=== PATIENT | female | born 1985 | race Caucasian/White ===

== ENCOUNTER 2022-04-24 09:04 | Outpatient (CLI) | payer OTHER, SELFPAY ==
--- NOTE | 2022-04-24 09:15 | CRLHL7_ITS ---
For Patients: As a result of the Century Cures Act, medical imaging exams and procedure reports are released immediately into your electronic medical record. You may view this report before your referring provider. If you have questions, please contact your health care provider. CLINICAL HISTORY: IUD string not visualized TECHNIQUE: Real time, torres scale images were acquired of the pelvis using a transabdominal and transvaginal approach. Color Doppler analysis was performed of the ovaries. FINDINGS: Uterus measures 10.1 x 4 x 5.1 centimeters. IUD within the endometrial cavity within a satisfactory position. Endometrium measures 5 millimeters. Right ovary measures 2.9 x 1.5 x 2.3 centimeters left ovary measures 4.1 x 1.5 x 2.7 centimeters. Both ovaries appear unremarkable normal blood flow to both ovaries. Hypoechoic rounded area in the cervix measuring approximately 3.9 x 2.3 x 2.4 centimeters may represent a fibroid. IMPRESSION: 1. IUD within the endometrium within in satisfactory position. 2. 3.9 x 2.3 x 2.4 centimeter rounded hypoechoic area in the cervix may represent a fibroid. Dictated by Alisa Grimes MD @ 04/24/2022 10:27:12 AM (Electronically Signed)
== END 2022-04-24 09:05 | disposition home or self-care (01) ==
LOC: US 09:04
PROVIDERS: PCP Family Medicine; Visit Provider Physician Assistant
DX: N92.1 Excessive and frequent menstruation with irregular cycle (principal); Z30.431 Encounter for routine checking of intrauterine contraceptive device
CPT/HCPCS: 76830; 76856

== ENCOUNTER 2022-05-12 07:44 | Day surgery (SDC) | payer OTHER, SELFPAY ==
[2022-05-12 08:00] VITALS: BP 113/90; PULSE 92; RESP 16; TEMP 36.9; O2SAT 99
[2022-05-12] MEDS: LACTATED RINGERS 1000 ML 1,000 ML 100 ML IV (08:00)
[2022-05-12 08:04] VITALS: BMI 21.7
[2022-05-12 08:29] LABS: Ur HCG Qualitative* Negative (Negative)
[2022-05-12] MEDS: LIDOCAINE 1% MDV 10 ML INJECTION (09:50)
[2022-05-12] MEDS: BUPIVACAINE 0.25% 30 ML 10 ML INJECTION (09:50)
[2022-05-12] MEDS: KETOROLAC 15 MG/ML inj IVP (09:54)
--- NOTE | 2022-05-12 10:03 | W.PM.GYNPROC ---
Procedure Note Date Seen: 05/12/22 Procedure Details: PREOPERATIVE DIAGNOSIS: 1. Irregular bleeding. 2. Cervical mass, prolapsed fibroid verses large polyp. 3. ParaGard intrauterine device. POSTOPERATIVE DIAGNOSIS: 1. Irregular bleeding. 2. Cervical mass, prolapsed fibroid verses large polyp. 3. ParaGard intrauterine device replaced by Mirena intrauterine device. NAME OF PROCEDURE: 1. ParaGard IUD removal. 2. Removal of cervical mass. 3. Hysteroscopy, D&C. 4. Mirena IUD placement. SURGEON: Az. ANESTHESIA: Monitored anesthesia care and paracervical block. COMPLICATIONS: None.. ESTIMATED BLOOD LOSS: Less than 10 mL. FINDINGS: Large irregular 3 x 2 cm mass extruding from the cervix, palpably irregularly firm and soft, arising from a stalk originating at the internal cervical os. Normal-appearing endometrial cavity and tubal ostia bilaterally. PATHOLOGY SPECIMENS: 1. Cervical mass, prolapsed fibroid versus polyp. 2. Endometrial curetting. PROCEDURE: After obtaining informed consent, the patient was taken to the operating room where she received monitored anesthesia care. She was prepared and draped in the normal sterile fashion, in the dorsal lithotomy position. An open-sided bivalve speculum was introduced into the vagina and the cervix visualized. A paracervical block was then administered using a total of 20 mL of a 50/50 mixture of 0.25% Marcaine and 1% lidocaine plain. The cervical mass was grasped with a ring forceps and twisted multiple times in a clockwise fashion until it spontaneously came free. The anterior lip of the cervix was grasped with a single-tooth tenaculum for traction. Sound length was 8 cm. The cervix was already passively dilated to a #6 Hegar dilator. A hysteroscope was then advanced under direct visualization through the cervix into the uterine cavity. Sterile normal saline was used as distending medium. The uterine cavity was carefully inspected with the findings noted above. Pictures were taken for documentation purposes. The hysteroscope was then removed. The endometrial lining was then sharply curetted. The hysteroscope was removed. A Mirena IUD was then loaded into the introducer, the introducer inserted to the level of the fundus, and the IUD deployed. The introducer was removed. The strings were trimmed to 3 cm length. The tenaculum was removed. There was little bleeding from the tenaculum site, which was controlled with direct pressure sponge stick. All instruments were then removed. The patient tolerated the procedure well. Sponge, lap, needle, and instrument counts reported as correct x2. The patient was taken to the recovery room awake in a stable condition. PATHOLOGY SPECIMENS: 1. Cervical mass. 2. Endometrial curettings.
[2022-05-12 10:15] VITALS: BP 102/71; PULSE 84; RESP 14; TEMP 36.6; O2SAT 99
--- NOTE | 2022-05-12 10:18 | W.ANESCHARGE ---
Anesthesia Charges Start Date/Time Anesthesia Start Date: 05/12/22 Anesthesia Start Time: 09:28 Stop Date/Time Anesthesia Stop Date: 05/12/22 Anesthesia Stop Time: 10:14 Summary Emergency: No
[2022-05-12 10:30] VITALS: BP 105/74; PULSE 70; RESP 14; O2SAT 99
--- NOTE | 2022-05-12 11:20 | W.ANESCHARGE ---
Anesthesia Charges Start Date/Time Anesthesia Start Date: 05/12/22 Anesthesia Start Time: 09:28 Stop Date/Time Anesthesia Stop Date: 05/12/22 Anesthesia Stop Time: 10:14 Summary Emergency: No
== END 2022-05-12 11:08 | disposition home or self-care (01) ==
PROVIDERS: PCP Family Medicine; Visit Provider Obstetrics & Gynecology
PROC: 0UDB8ZZ Extraction of Endometrium, Via Natural or Artificial Opening Endoscopic (ICD-10-PCS; CPT 58558; principal; 2022-05-12 09:00)
DX: N92.6 Irregular menstruation, unspecified (principal); D25.9 Leiomyoma of uterus, unspecified; Z30.433 Encounter for removal and reinsertion of intrauterine contraceptive device; N88.9 Noninflammatory disorder of cervix uteri, unspecified
CPT/HCPCS: 58558; 58301; 58300; 00952; 81025; 88305; J1885; J2250; J2704; J3010; J3490; J7120; J7298

== ENCOUNTER 2022-12-03 08:45 | Outpatient (CLI) | payer OTHER, SELFPAY ==
[2022-12-03 13:29] LABS: Albumin* 4.1 g/dL (3.3-5.0)
[2022-12-03 13:30] LABS: Chloride* 106 mmol/L (96-114); Potassium* 4.3 mmol/L (3.6-5.1); Sodium* 139 mmol/L (135-149)
[2022-12-03 13:32] LABS: Amylase* 59 U/L (18-89); Basophils Absolute Auto 0.03 K/uL (0.00-0.30); Basophils Percent Auto 0.5 % (0.0-3.0); Bilirubin Total* 0.6 mg/dL (0.1-1.5); Carbon Dioxide* 28 mmol/L (20-32); Creatinine* 0.6 mg/dL (0.5-1.5); Eosinophils Absolute Auto 0.04 K/uL (0.00-0.50); Eosinophils Percent Auto 0.7 % (0.0-7.0); Estimated Glomerular Filt Rate 120 ml/min; Hematocrit 42.5 % (33.0-51.0); Hemoglobin* 14.5 gm/dL (12.0-16.0); Lymphocytes Absolute Auto 2.04 K/uL (0.90-2.90); Lymphocytes Percent Auto 34.6 % (20-44); Mean Corpuscular HGB Conc 34 gm/dL (32-36); Mean Corpuscular Hemoglobin 30 pg (26-34); Mean Corpuscular Volume 88 fL (80-100); Monocytes Percent Auto 8.3 % (0.0-11.0); Neutrophils Percent Auto 55.9 % (42.0-72.0); Platelet Count* 277 K/uL (140-440); RDW Coefficient of Variation % 11.9 % (11.5-15.5); Red Blood Count 4.82 m/uL (4.00-5.20)
[2022-12-03 13:33] LABS: Alanine Aminotransferase* 18 U/L (4-35); Alkaline Phosphatase* 51 U/L (40-150); Aspartate Amino Transferase* 22 U/L (12-35); Blood Urea Nitrogen* 12 mg/dL (5-24); Calcium* 9.5 mg/dL (8.4-10.6); Glucose* 80 mg/dL (60-115); Lipase* 86 U/L (23-300); Total Protein* 7.1 g/dL (6.0-8.3)
[2022-12-03 13:35] LABS: Slide Review Reflex No
== END 2022-12-03 08:46 | disposition home or self-care (01) ==
PROVIDERS: PCP Family Medicine; Visit Provider Nurse Practitioner Family
DX: M54.9 Dorsalgia, unspecified (principal); R10.9 Unspecified abdominal pain; R10.13 Epigastric pain; R11.0 Nausea
CPT/HCPCS: 80053; 82150; 83690; 85025; 87086

== ENCOUNTER 2022-12-30 09:33 | Outpatient (CLI) | payer OTHER, SELFPAY ==
[2022-12-30 11:21] LABS: Cholesterol* 157 mg/dL (90-199); HDL Cholesterol* 53 mg/dL (>=50); LDL Cholesterol Calculated 79 mg/dL (<100); Triglycerides* 123 mg/dL (40-149)
[2022-12-30 11:51] LABS: TSH With Reflex to FT4* 0.682 uIU/mL (0.270-4.200)
== END 2022-12-30 09:34 | disposition home or self-care (01) ==
PROVIDERS: PCP Family Medicine; Visit Provider Family Medicine
DX: Z00.00 Encounter for general adult medical examination without abnormal findings (principal); R00.0 Tachycardia, unspecified; Z13.6 Encounter for screening for cardiovascular disorders
CPT/HCPCS: 80061; 84443

== ENCOUNTER 2023-08-12 07:28 | Outpatient (CLI) | payer OTHER, SELFPAY ==
--- NOTE | 2023-08-12 08:00 | CRLHL7_ITS ---
For Patients: As a result of the Century Cures Act, medical imaging exams and procedure reports are released immediately into your electronic medical record. You may view this report before your referring provider. If you have questions, please contact your health care provider. INDICATION: localized swelling/LT neck mass marked with BB TECHNIQUE: CT of the neck with 69 ml iodinated contrast agent. Coronal and sagittal reconstructions are included. COMPARISON: None FINDINGS: There is no mass or other lesion within the soft tissues of the suprahyoid or infrahyoid neck. Minimally prominent level 2 lymph nodes bilaterally, not enlarged x size criteria, and with normal morphology. The oral cavity, nasopharyngeal, oropharyngeal and hypopharyngeal mucosal spaces are normal. The supraglottic, glottic and infraglottic larynx are unremarkable. The airway including the trachea is normal and is patent. The parotid glands, submandibular and sublingual glands are normal in appearance. The thyroid gland is normal in appearance. Moderate polypoid mucosal thickening in left maxillary sinus. Leftward deviation of the nasal septum. The vascular structures opacify normally with contrast material. Minimal endplate osteophytic spurring at C5-6. No significant spinal canal stenosis or neural foramen narrowing. No suspicious lytic or blastic osseous lesions. Visualized orbital and intracranial contents are unremarkable. Supraclavicular regions, mediastinum and soft tissues of the imaged chest wall are unremarkable. Visualized portions of the upper lungs are clear. IMPRESSION: 1. No suspicious enhancement or neck mass. Unremarkable deep soft tissues of the neck. 2. No evidence of acute inflammation. 3. Minimally prominent level 2 lymph nodes bilaterally, not enlarged by size criteria, and with normal morphology. Findings may represent reactive lymph nodes. 4. Moderate polypoid mucosal thickening in the left maxillary sinus. Please note that all CT scans at this facility use dose modulation, iterative reconstruction, and/or weight-based dosing when appropriate to reduce radiation dose to as low as reasonably achievable. Dictated by Maico Wheeler MD @ 08/12/2023 12:13:25 PM (Electronically Signed)
== END 2023-08-12 07:29 | disposition home or self-care (01) ==
LOC: CT 07:29
PROVIDERS: PCP Family Medicine; Visit Provider Internal Medicine
DX: R22.1 Localized swelling, mass and lump, neck (principal); J32.0 Chronic maxillary sinusitis
CPT/HCPCS: 70491; Q9967

== ENCOUNTER 2024-02-09 06:08 | Day surgery (SDC) | payer OTHER, SELFPAY ==
[2024-02-09] VITALS (18 sets, daily range): BP systolic 92–118; BP diastolic 52–79; PULSE 64–95; RESP 14–16; TEMP 36.3–37.1; O2SAT 97–100; BMI 20.5
--- OUTSIDE RECORDS SUMMARY | 2024-02-09 06:10 | XMS_ITS | Clinical Summary ---
Author Name Unknown Organization [facility] Address [id number] [address] Care Team Providers Care Direct Care Specialist Name Role Phone No Primary/Referring, Phy Primary Care Provider Unavailable Source Comments You are receiving this document as you are listed as the primary care provider,follow-up provider, or the patient has been referred to you for consultation.This is in compliance with the Medicare and[facility] EHR Incentive Program,which states Providers who transition their patient to another setting of careor provider of care or refers their patient to another provider of care shouldprovide summary care record for each transition of care or referral. [facility] Allergies No known active allergies Medications Medication Sig Dispensed Refills Start Date End Date Status spironolactone (ALDACTONE) 50 MG tabletIndications:Hir sutism Take 1 Tablet by mouth daily. 90 Tablet 3 07/03/2021 Active Active Problems No known active problems Immunizations Name Administration Dates Next Due Influenza IIV4 (Quadrivalent) 0.5mL (74117) 12/2013,09/18/2013 Family History Medical History Relation Name Comments Other Mother Hx of lupus and blood clot tx with meds. Diabetes, Type II Maternal Grandfather Di ed secondary to stroke. Relation Name Status Comments Mother Maternal Grandfather Social History Tobacco Use Types Packs/Day Years Used Date Smoking Tobacco: Never Smokeless Tobacco: Never Alcohol Use Standard Drinks/Week Comments Yes 0 (1 standard drink = 0.6 oz pur e alcohol) occ Sex and Gender Information Value Date Recorded Sex Assigned at Not on file Gender Identity Not on file Sexual Orientation Not on file Last Filed Vital Signs Vital Sign Reading Time Taken Comments Blood Pressure 120/81 12/08/2021 1:54 PM CDT Pulse 102 12/08/2021 1:54 PM CDT Temperature - - Respiratory Rate - - Oxygen Saturation - - Inhaled Oxygen Concentration - - Weight 68.4 kg (150 lb 11.2 oz) 12/08/2021 1:54 PM CDT Height 172.7 cm (5' 8) 12/08/2021 1:54 PM CDT Body Mass Index 22.91 12/08/2021 1:54 PM CDT Plan of Treatment Health Maintenance Due Date Last Done Comments Hep C Screening (Preventive Services) 1987 HIV Screening (Preventive Services) 2003 HepB (1) 2006 Cervical Cancer Screening Due 09/19/2013 09/18/2013, 09/18/2013 Adult Preventive Visit 09/18/2015 09/18/2013 COVID-19 Vaccine ( season) 2023 07/23/2021, 12/18/2020, 11/20/2020 Influenza (Season Ended) 2024 021, 07/23/2020, 06/26/2020, Additional history exists DTaP/Tdap/Td (4 - Tdap) 01/12/2028 01/12/20 18, 09/18/2015, 09/18/2015 Zoster/Shingles (1 of 2) 2037 HPV Vaccine Aged Out No longer eligi ble based on patient's age to complete this topic HepA Aged Out No longer eligi ble based on patient's age to complete this topic Hib Aged Out No longer eligi ble based on patient's age to complete this topic IPV (Polio) Aged Out No longer eligi ble based on patient's age to complete this topic MCV4 Aged Out No longer eligi ble based on patient's age to complete this topic Pneumococcal Aged Out No longer eligi ble based on patient's age to complete this topic Procedures Procedure Name Priority Date/Time Associated Diagnosis Comments PAP TEST, ROUTINE Routine 09/18/2013 11: 34 AM MATERIAL MANAGER Preventative health care from Last 3 Months or Most Recently Relevant to Health Maintenance Results * PAP TEST, ROUTINE (09/18/2013 11:34 AM MATERIAL MANAGER) Cytology (NOTE) Acoustical Engineer Cytology Report Patient Name: JERARDO LIM Taken: 09/18/2013 Received: 09/21/2013 Reported: 09/26/2013 Physician(s): SHIRA ALDRICH ([id number]) ?Source of Specimen Pap Test, Routine Cervical/Endocervi raquel: ?Specimen Adequacy ?Satisfactory for evaluation. ??Endocervical component present. ? Final Cytologic Interpretation/Res ult NEGATIVE FOR INTRAEPITHELIAL LESION OR MALIGNANCY (NILM) ?? Electronically Signed Out By REENA Fofana (ASCP) REENA Fofana (ASCP) ? Pap Smear History Date of Last Menstrual Period: 09/02/2013 ?? Microscopic Description Microscopic examination is performed. [facility] Department of Pathology [address] [place] [address] ??[id number] [facility] 09/18/2013 11:3 4 AM MATERIAL MANAGER 09/21/2013 11:06 AM MATERIAL MANAGER Shira Aldrich ICICLE MACHINE OPERATOR, LOAD HAUL DUMP OPERATOR LAB_1 [facility] [phone] from Last 3 Months or Most Recently Relevant to Health Maintenance Care Teams Direct Care Specialist Relationship Specialty Start Date End Date No Primary/Referring, y PCP - General 07/13/13
[2024-02-09 06:33] LABS: Ur HCG Qualitative* Negative (Negative)
[2024-02-09] MEDS: SODIUM CHLORIDE 0.9 % (FLUSH) 10 ML SYRINGE IVF (06:35)
[2024-02-09] MEDS: LACTATED RINGERS 1000 ML 1,000 ML 100 ML IV (06:35)
--- NOTE | 2024-02-09 07:24 | W.PM.H&PU ---
History & Physical Update History & Physical Update H&P Reviewed and patient assessed: No changes noted
--- NOTE | 2024-02-09 07:27 | P.GSOP_ITS ---
Operative Note Date of procedure: 02/09/24 Pre-op diagnosis: 1. Symptomatic left inguinal hernia. 2. Umbilical hernia. Post-op diagnosis: 1. Small indirect and direct left inguinal hernia. 2. Umbilical hernia containing incarcerated preperitoneal fat. Type of Procedure: 1. Laparoscopic left inguinal hernia repair with mesh. 2. Open umbilical hernia repair without mesh. Indications: 38-year-old female was seen in clinic for evaluation of a left inguinal bulge that was initially noticed last fall. The bulge has been increasing in size. It was most prominent at the end of the day when she was standing at work all day. Patient works as a teacher. She noticed discomfort over the bulge occasionally but that did not interfere with her daily activities. On clinical exam patient had a small umbilical hernia bulge in the center of the umbilicus. This was not tender to palpation. With the patient standing up and doing Valsalva there was a small left inguinal bulge noted. No bulges palpated on the right. Given patient's clinical history and her physical exam, a laparoscopic left inguinal hernia repair was recommended. We also discussed whether or not patient wanted to proceed with an umbilical hernia repair at the same time, and she elected to proceed. The procedure was discussed in detail. The risks associated procedure including infection, bleeding, hernia recurrence, nerve pain, and injury to intra-abdominal organs were all discussed with the patient, and she agreed to proceed. Procedure Description: After discussing the risks and benefits of the procedure, the patient signed informed consent.? The operative site was marked and the patient was brought to the operating room and placed on the operating table in supine position.? Care was taken to pad the patient's pressure points.?? The patient was then intubated by anesthesia.?? The operative site was then prepped and draped in the usual sterile fashion.? A time-out was then performed. An infraumbilical skin incision was made with a scalpel and subcutaneous tissues were dissected with electrocautery. Anterior sheath was incised with electrocautery and rectus muscle was retracted laterally. A 12 mm spacemaker dissector system was introduced into the incision and advanced over the posterior sheath. Preperitoneal space was dissected with manually insufflating air under direct visualization. Once the tissues were dissected, the balloon was deflated and removed.? A laparoscopic balloon was placed into preperitoneal space and balloon was inflated. Preperitoneal space was insufflated with air. No bleeding was identified upon examination of preperitoneal space. We then placed two 5 mm ports suprapubically under direct visualization. ? The preperitoneal tissues were bluntly dissected with graspers.? The pubic bone was identified and? cleared from preperitoneal tissue.?? Inferior epigastrics on the left?side were retracted towards the abdominal wall.??Round ligament? was identified and dissected circumferentially.? This was done bluntly. A small direct hernia space was identified.?? The indirect hernia sac was noted and peritoneum was dissected bluntly from the round ligament.?? When adequate space was developed for mesh placement, a left sided Bard mesh was used and positioned over the left inguinal canal in. The mesh was tacked medially and laterally with?tacks.? Additional local anesthetic was injected directly into pre- peritoneal space. ? The space was deflated under direct visualization and mesh appeared to be still lying in a good position. The ports were then removed. Anterior sheath was then closed with a running 0-0 vicryl suture. I then proceeded with open umbilical hernia repair. The umbilicus was mobilized off the anterior fascia with cautery. The umbilical fascial defect was approximately 8 mm. Preperitoneal fat was incarcerated through this fascial defect. The surrounding fascia was strong. The fat was reduced and the fascial defect was then repaired primarily with interrupted 0-0 Nurolon sutures. The umbilicus was then tacked down to the anterior fascia with interrupted 3-0 Vicryl sutures. The dermis was reapproximated with interrupted 3-0 Vicryl sutures. Skin of all incisions was closed with 4-0 monocryl using subcuticular stitch. Steri strips were applied over the?incisions. 2 x 2 and 4 x 4 were placed into the umbilicus and the dressings were secured with tape. ? All counts were correct at the end of the case. Patient tolerated the procedure well and was transferred to PACU without any complications. Findings: Small indirect and direct left inguinal hernia, repaired with mesh. Small umbilical hernia repaired without mesh. Anesthesia: GETA Surgeon: Helen Dodd MD Estimated blood loss (mL): 5 Condition: stable Disposition: PACU
[2024-02-09] MEDS: CEFAZOLIN 1 GM inj IVP (07:46)
[2024-02-09] MEDS: BUPIVACAINE 0.25% 30 ML INJECTION (07:50)
--- NOTE | 2024-02-09 08:51 | W.ANESCHARGE ---
Anesthesia Charges Start Date/Time Anesthesia Start Date: 02/09/24 Anesthesia Start Time: 07:32 Stop Date/Time Anesthesia Stop Date: 02/09/24 Anesthesia Stop Time: 08:58
[2024-02-09] MEDS: fentaNYL 100 MCG/2 ML inj 50 MCG IVP (09:06)
[2024-02-09] MEDS: MEPERIDINE 25 MG/ML INJ 12.5 MG IVP (09:17)
[2024-02-09] MEDS: ONDANSETRON 2 MG/ML inj 4 MG IVP (09:26)
[2024-02-09] MEDS: LACTATED RINGERS 1000 ML 1,000 ML 35 ML IV (09:35)
[2024-02-09] MEDS: HYDROCODONE-ACETAMIN 5-325 MG 1 TAB PO (10:37)
[2024-02-09] MEDS: METOCLOPRAMIDE HCL 5 MG/ML INJ 10 MG IVP (11:29)
== END 2024-02-09 11:48 | disposition home or self-care (01) ==
PROVIDERS: Anesthesiology; PCP Family Medicine; Visit Provider Surgery
PROC: (CPT 49650; principal; 2024-02-09 07:30)
DX: K40.90 Unilateral inguinal hernia, without obstruction or gangrene, not specified as recurrent (principal); K42.0 Umbilical hernia with obstruction, without gangrene
CPT/HCPCS: 49650; 49591; 00860; 81025; A9270; C1781; J0665; J0690; J1100; J1885; J2175; J2250; J2371; J2405; J2704; J2710; J2765; J3010; J7120

== ENCOUNTER 2025-05-17 07:08 | Outpatient (CLI) | payer OTHER, SELFPAY ==
--- NOTE | 2025-05-17 07:15 | CRLHL7_ITS ---
For Patients: As a result of the Century Cures Act, medical imaging exams and procedure reports are released immediately into your electronic medical record. You may view this report before your referring provider. If you have questions, please contact your health care provider. CLINICAL HISTORY: Pelvic Pain/Cramping COMPARISON: 04/24/2022 TECHNIQUE: 2D torres-scale ultrasound. In addition, color Doppler and spectral Doppler analysis was performed of the pelvis using a transabdominal and transvaginal approach. Transvaginal imaging performed to better visualize the endometrial stripe and ovaries. FINDINGS: Intramural fibroid is present within the midline of the fundus which measures 6 x 6 x 7 millimeters. Uterus measures 9.2 x 4.2 x 6.5 cm. Endometrium measures 1.7 millimeters. IUD is present in good position within the endometrial canal. The right ovary measures 3.1 x 2.3 x 2.9 cm in size and the left ovary measures 3.8 x 2.4 x 2.3 cm. The ovaries demonstrate normal arterial and venous blood flow on color Doppler and spectral Doppler analysis. Mild pelvic free fluid. IMPRESSION: Normal ovaries. Normal position of an IUD within the endometrial canal. Intramural fibroid measures 7 millimeters. Dictated by Maico Munoz MD @ 05/17/2025 2:29:16 PM (Electronically Signed)
== END 2025-05-17 07:09 | disposition home or self-care (01) ==
LOC: US 07:09
PROVIDERS: PCP Family Medicine; Visit Provider Physician Assistant
DX: R10.2 Pelvic and perineal pain (principal)
CPT/HCPCS: 76830; 76856; 93976